=== PATIENT | male | born 1985 | race Caucasian/White ===

== ENCOUNTER 2018-09-25 13:21 | Emergency (ER) | payer SELFPAY ==
[~2018-09-25] VITALS: Ht 182.9 cm; Wt 156.5 kg
[2018-09-25 13:22] VITALS: BP 156/104
[2018-09-25] MEDS ORDERED: fentaNYL PF VIAL 100 MCG/2 ML VIAL IV ONE (14:15)
--- NOTE | 2018-09-25 14:15 | RAD ---
Two-view left shoulder dated 09/25/2018. No comparison available. Clinical data indication: Pain after fall. FINDINGS: 2 views of left shoulder show normal bony alignment. No displaced fracture. No acute osseous or articular abnormality. Postsurgical changes of the distal clavicle. IMPRESSION: No acute radiographic abnormality. Electronically signed by: Geovany Viera MD (09/25/2018 2:12 PM) [id number]
[2018-09-25] MEDS ORDERED: IBUP-1007 PO (14:34)
--- NOTE | 2018-09-25 14:35 | PHYS DOC ---
Past Medical History Past Medical History: No Pertinent History Past Surgical History: Cholecystectomy Additional Past Surgical Histo: Left clavical 2017, Bilateral Breast reduction at age 18 Alcohol Use: None Drug Use: None Adult General Chief Complaint Chief Complaint: MECHANICAL FALL HPI HPI Patient is a 33 year old M who presents with left shoulder pain. He tripped on the bottom step and fell. He landed on his left shoulder. He has a history of an injury req surgery in that shoulder. Denies hitting his head, LOC, or other injuries/pain. He can move his arm no problem. Review of Systems Review of Systems Constitutional: Denies fever or chills Eyes: Denies change in visual acuity, redness, or eye pain HENT: Denies nasal congestion or sore throat Respiratory: Denies cough or shortness of breath Cardiovascular: No additional information not addressed in HPI GI: Denies abdominal pain, nausea, vomiting, bloody stools or diarrhea : Denies dysuria or hematuria Musculoskeletal: Denies back pain or joint pain Integument: Denies rash or skin lesions Neurologic: Denies headache, focal weakness or sensory changes Endocrine: Denies polyuria or polydipsia All other systems were reviewed and found to be within normal limits, except as documented in this note. Current Medications Current Medications Current Medications Medications (Trade) Dose Ordered Sig/Keon Start Time Stop Time Status Last Admin Dose Admin Fentanyl Citrate (Fentanyl 2ml Vial) 100 mcg 1X ONCE 09/25/18 14:15 09/25/18 14:16 DC 09/25/18 14:38 100 MCG Allergies Allergies Allergies Coded Allergies Type Severity Reaction Last Updated Verified No Known Drug Allergies 09/25/18 No Physical Exam Physical Exam Constitutional: Well developed, well nourished, no acute distress, non-toxic appearance. HENT: Normocephalic, atraumatic, bilateral external ears normal, oropharynx moist, no oral exudates, nose normal. Eyes: PERRLA, EOMI, conjunctiva normal, no discharge. Neck: Normal range of motion, no tenderness, supple, no stridor. Cardiovascular:Heart rate regular rhythm, no murmur Lungs & Thorax: Bilateral breath sounds clear to auscultation Abdomen: Bowel sounds normal, soft, no tenderness, no masses, no pulsatile masses. Skin: Warm, dry, no erythema, no rash. Back: No tenderness, no CVA tenderness. Extremities: No tenderness, no cyanosis, no clubbing, ROM intact, no edema. L shoulder with intact ROM at shoulder/elbow/hand, 2+ pulses, neuro intact, sensation intact. TTP over clavicle. No deformity. Neurologic: Alert and oriented X 3, normal motor function, normal sensory function, no focal deficits noted. Psychologic: Affect normal, judgement normal, mood normal. Current Patient Data Vital Signs Vital Signs Date Time Temp Pulse Resp B/P (MAP) Pulse Ox O2 Delivery O2 Flow Rate FiO2 09/25/18 14:38 20 96 09/25/18 13:22 98.9 104 156/104 (121) Room Air 98.9 EKG EKG [] Radiology/Procedures Radiology/Procedures [] Course & Med Decision Making Course & Med Decision Making Pertinent Labs and Imaging studies reviewed. (See chart for details) 33 y/o M presents for left shoulder pain with no deformity and intact ROM slightly limited by pain. Xray neg for acute fx or dislocation. Tx with motrin. Follow up with PMD. Discussed return precautions. Pt says he is depressed. Seen by PAT team. Arranged outpt follow up. Refill wellbutrin for short course (pts home med, he is out) Dragon Disclaimer Dragon Disclaimer This electronic medical record was generated, in whole or in part, using a voice recognition dictation system. Departure Departure Impression: Primary Impression: Shoulder pain, left Disposition: 01 HOME, SELF-CARE Condition: IMPROVED Referrals: NON,STAFF (PCP) Patient Instructions: Shoulder Pain Scripts Bupropion Hcl (WELLBUTRIN SR) 150 Mg Tablet.er 1 TAB PO BID, #30 TAB 5 Refills Prov: SHIREEN DOWLING MD 09/25/18 Ibuprofen (IBUPROFEN) 600 Mg Tablet 600 MG PO PRN Q6HRS PRN for PAIN for 7 Days, #20 TAB 1 Refill take with food or milk Prov: SHIREEN DOWLING MD 09/25/18 SHIREEN DOWLING MD September 25, 2018 14:34
[2018-09-25] MEDS ORDERED: BUPR150T8 PO (15:25)
== END 2018-09-25 15:25 | disposition home or self-care (01) ==
LOC: ER 13:21
DX: M25.512 Pain in left shoulder (principal); Z90.49 Acquired absence of other specified parts of digestive tract
CPT/HCPCS: 73030; 96374; 99284; J3010